=== PATIENT | female | born 1995 | race Caucasian/White ===

== ENCOUNTER → 2018-02-05 | Outpatient (CLI) | payer OTHER ==
[~2018-02-05] MED LIST: ALBU8.5H IH; ALPR-429 PO; AMOX-559 PO; AZIT-17 PO; DESO1TAB74 PO; DEXL60CA6 PO; FLUT15.88; FLUT9.9S; GUAI120L3 PO; HYOS-50 SL; IBUP400T13 PO; ONDA4TAB PO; ONDA8TAB97 PO; PANT40TA65 PO; PROM-110 PO; SERT-181 PO; SERT-184 PO; SERT25TA90 PO; TRAZ50TA34 PO
== END ==
LOC: LAB 10:43
PROVIDERS: ATTEND Internal Medicine
DX: A49.01 Methicillin susceptible Staphylococcus aureus infection, unspecified site (principal)
CPT/HCPCS: 87070; 87077; 87186